=== PATIENT | male | born 1960 | race Two or more races ===

== ENCOUNTER → 2025-01-13 | Outpatient (CLI) | payer OTHER ==
[2025-01-13 12:12] LABS: Hematocrit 45.1 % (41.0-53.0); Hemoglobin 15.5 g/dL (13.5-17.5); Mean Corpuscular Hemoglobin 30.6 pg (28.0-32.0); Mean Corpuscular Volume 89.1 fL (80.0-100.0); Nucleated Red Blood Cells % 0.1 %
[2025-01-13 12:15] LABS: Urine Protein, UAD Negative (Negative)
[2025-01-13 12:17] LABS: Urine WBC Clumps <1 /hpf (None Seen)
[2025-01-13 12:39] LABS: Alanine Aminotransferase 17 U/L (7-40); Albumin 4.6 g/dL (3.2-4.8); Alkaline Phosphatase 85 U/L (46-116); Anion Gap 6 (5-15); BUN/Creatinine Ratio 11.1 (10.0-20.0); Blood Urea Nitrogen 11 mg/dL (9-23); Calcium 9.5 mg/dL (8.7-10.4); Carbon Dioxide 29 mmol/L (20-31); Chloride 105 mmol/L (98-107); Cholesterol 195 mg/dL (< 200); Glucose 83 mg/dL (74-106); Potassium 4.4 mmol/L (3.5-5.1); Sodium 140 mmol/L (136-145); Total Protein 6.6 g/dL (5.7-8.2)
[2025-01-13 12:40] LABS: Bilirubin, Total 0.7 mg/dL (0.2-1.0); Triglycerides 51 mg/dL (< 150)
[2025-01-13 12:44] LABS: Free T4 (Free Thyroxine) 1.09 ng/dL (0.89-1.76)
[2025-01-13 12:53] LABS: HDL Cholesterol 61 mg/dL (40-59)
[2025-01-13 13:50] LABS: Prostate Specific Antigen 0.7 ng/mL (0.0-4.0)
== END | disposition home or self-care (01) ==
LOC: LAB 11:15
PROVIDERS: ATTEND Internal Medicine
DX: H93.11 Tinnitus, right ear (principal)
CPT/HCPCS: 36415; 80053; 80061; 81001; 83036; 84153; 84439; 84443; 85025; 85652

== ENCOUNTER → 2025-03-02 | Outpatient (CLI) | payer OTHER ==
[~2025-03-02] VITALS: Ht 180.3 cm; Wt 88.5 kg
[~2025-03-02] MED LIST: ACE3T PO
[2025-03-02 12:11] LABS: Hematocrit 46.7 % (41.0-53.0); Hemoglobin 15.9 g/dL (13.5-17.5); Mean Corpuscular Hemoglobin 30.3 pg (28.0-32.0); Mean Corpuscular Volume 89.3 fL (80.0-100.0); Nucleated Red Blood Cells % 0.0 %
[2025-03-02 12:21] LABS: Urine Protein, UAD Negative (Negative)
[2025-03-02 12:24] LABS: INR 0.99 (0.9-1.15); Partial Thromboplastin Time 28.3 SEC (24.5-34.5); Prothrombin Time 10.5 sec (9.3-11.8)
[2025-03-02 12:29] LABS: Alanine Aminotransferase 17 U/L (7-40); Albumin 4.6 g/dL (3.2-4.8); Alkaline Phosphatase 85 U/L (46-116); Anion Gap 10 (5-15); BUN/Creatinine Ratio 10.0 (10.0-20.0); Blood Urea Nitrogen 10 mg/dL (9-23); Calcium 9.7 mg/dL (8.7-10.4); Carbon Dioxide 28 mmol/L (20-31); Chloride 104 mmol/L (98-107); Glucose 88 mg/dL (74-106); Potassium 4.2 mmol/L (3.5-5.1); Sodium 142 mmol/L (136-145); Total Protein 7.4 g/dL (5.7-8.2)
[2025-03-02 12:30] LABS: Bilirubin, Total 0.9 mg/dL (0.2-1.0)
== END | disposition home or self-care (01) ==
LOC: LAB 11:50 → EDSTATUS 03-06 12:00
PROVIDERS: ATTEND Surgery
DX: Z01.812 Encounter for preprocedural laboratory examination (principal)
CPT/HCPCS: 36415; 80053; 81001; 85025; 85610; 85730; 86850; 86900; 86901

== ENCOUNTER 2025-03-15 06:09 | Day surgery (SDC) | payer OTHER ==
[~2025-03-15] VITALS: Ht 180.3 cm; Wt 74.8 kg
[2025-03-15] MEDS ORDERED: KETOROLAC TROMETH 30 MG/ML 1ML VIAL ONE (06:55)
[2025-03-15] MEDS ORDERED: ONDANSETRON HCL 4 MG/2 ML VIAL ONE (06:55)
[2025-03-15] MEDS ORDERED: LIDOCAINE 2% (LOCAL ANESTH.) PF 5ml SDV ONE (06:55)
[2025-03-15] MEDS ORDERED: PROPOFOL 10 MG/ML 20 ML IV ONE (06:55)
[2025-03-15] MEDS ORDERED: GLYCOPYRROLATE 0.2 MG/ML 1ML VIAL ONE (06:55)
[2025-03-15] MEDS: ACETAMINOPHEN IV 1000 MG/100ML (10MG/ML) IV ONE (07:20)
[2025-03-15] MEDS: CELECOXIB 100 MG CAP PO ONE (07:20)
[2025-03-15] MEDS: GABAPENTIN 300 MG CAP PO ONE (07:20)
[2025-03-15] MEDS ORDERED: LIDOCAINE HCL 2% TOP JELLY 5ML TOP ONE (07:22)
[2025-03-15] MEDS ORDERED: fentaNYL CITRATE 100 MCG/2 ML VL ONE (07:24)
[2025-03-15] MEDS: ceFAZolin 1GM/50ML 50 ML IV ONE (07:25)
[2025-03-15] MEDS: BUPIVACAINE HCL 0.25% P/F 10 ML VIAL ONE (07:42)
[2025-03-15] MEDS: LIDOCAINE W/ EPINEPHRINE 1% 20ML VIAL ONE (07:42)
[2025-03-15] MEDS ORDERED: ACE3T PO (08:12)
[2025-03-15 08:13] VITALS: PULSE 98; RESP 16; TEMP 97.4; O2SAT 98
[2025-03-15] MEDS ORDERED: NALOXONE HCL 0.4 MG/ML VIAL IV PRN (08:30)
[2025-03-15] MEDS ORDERED: ONDANSETRON HCL 4 MG/2 ML VIAL IV PRN (08:30)
[2025-03-15] MEDS ORDERED: FLUMAZENIL 0.1 MG/ML INJ 10ML MDV IV PRN (08:30)
[2025-03-15] MEDS ORDERED: HYDROmorphone HCL 2 MG/ML VL/or syr IV PRN (08:30)
[2025-03-15] MEDS ORDERED: hydrALAZINE HCL 20 MG/ML VL IV PRN (08:30)
[2025-03-15] MEDS ORDERED: fentaNYL CITRATE 100 MCG/2 ML VL IV PRN (08:30)
--- NOTE | 2025-03-15 08:58 | DVHOP ---
DATE OF SURGERY: 03/15/2025 PREOPERATIVE DIAGNOSIS: Right inguinal hernia. POSTOPERATIVE DIAGNOSIS: Inguinal hernia, right, indirect (recurrent). DESCRIPTION OF PROCEDURE: The patient was taken to the operating room and general anesthesia was administered by Dr. Pito Nguyen. The patient's abdomen and groin were prepped and draped. The incision site in the right groin was infiltrated with 0.25% Marcaine, 0.5% Xylocaine and epinephrine mixture. The incision was made, deepened with electrocautery through adipose tissues, Maya's fascia down onto the fibers of the external oblique aponeurosis. There was a large indirect herniation. The sac was from cremasteric fibers and from the cord structures, and the sac was opened and digitally explored. At the time of this exploration, the sac did not contain any viscera. The sac was stripped of cremasteric muscle fibers and fat and it was traced high into the internal inguinal ring where it was twisted on itself, doubly ligated. The excess peritoneum excised and submitted for histopathologic examination. The hernia floor was then repaired using 0 nonabsorbable sutures through conjoint tendon and Poupart's ligament. The closure allowed the accommodation of the examining fingertip in order not to constrict the cord structures. The wound was irrigated. Hemostasis was accomplished and inspected. At the time of termination of the procedure, there was no evidence of any bleeding. Subcutaneous tissues and skin were approximated using Monocryl sutures. The testicle was returned into its normal anatomical position. The patient remained stable throughout the procedure, left the operating room following an accurate needle and sponge count. The patient's , Anita Donahue, was thoroughly informed in the waiting area. MD PABLITO Lerner/BOO TID: [id number] RECEIPT: [id number]
[2025-03-15 09:28] VITALS: BP 141/114; PULSE 77; RESP 12; O2SAT 97
== END 2025-03-15 09:40 | disposition home or self-care (01) ==
LOC: SUR 06:09
PROVIDERS: ATTEND Surgery
DX: K40.91 Unilateral inguinal hernia, without obstruction or gangrene, recurrent (principal); D17.6 Benign lipomatous neoplasm of spermatic cord
CPT/HCPCS: 49520; 86850; 86900; 86901; J0690; J1100; J1885; J2003; J2405; J2704; J3490